=== PATIENT | female | born 1995 | race Caucasian/White ===

== ENCOUNTER 2018-10-03 09:57 | Inpatient (IN) | payer MEDICAID ==
[~2018-10-03] VITALS: Ht 160 cm; Wt 88.2 kg
[2018-10-03] MEDS ORDERED: OXYTOCIN 30U/ 0.9% NaCL 500ML 500 ML IV ONE (10:34)
[2018-10-03] MEDS ORDERED: OXYTOCIN 30U/ 0.9% NaCL 500ML 500 ML IV PRN (10:34)
[2018-10-03] MEDS ORDERED: NEWBORN KIT ONE ×2 (10:38→11:49)
[2018-10-03] MEDS ORDERED: OXYTOCIN 30U/ 0.9% NaCL 500ML 500 ML ONE (10:38)
[2018-10-03] MEDS ORDERED: PENICILLIN GK 5,000,000 UNITS in DEXTROSE 5% 100 ML IVPB ONE (11:00)
[2018-10-03] MEDS ORDERED: FENTANYL PF 100 MCG/2ML IVPush PRN (11:00)
[2018-10-03] MEDS ORDERED: PLEASE ENTER HEIGHT AND WEIGHT MC SCH (11:00)
[2018-10-03] MEDS ORDERED: ONDANSETRON 2MG/ML, 2ML IVPush PRN (11:00)
[2018-10-03] MEDS ORDERED: CALCIUM CARBONATE 500 MG TAB.CHEW PO PRN (11:00)
[2018-10-03 11:08] LABS: BASOPHILS # (AUTO) 0.04 x10^3/uL (0-0.1); BASOPHILS % (AUTO) 1 % (0-1); EOSINOPHILS # (AUTO) 0.06 x10^3/uL (0-0.4); EOSINOPHILS % (AUTO) 1 % (1-7); LYMPHOCYTES # (AUTO) 1.31 x10^3/uL (1-3.4); LYMPHOCYTES % (AUTO) 16 % (22-44); MD NO; MEAN CORPUSCULAR HEMOGLOBIN 26.3 pg (27.0-34.8); MEAN CORPUSCULAR VOLUME 79.7 fL (80-100); MEAN PLATELET VOLUME 8.6 fL (7.4-10.4); MONOCYTES # (AUTO) 0.56 x10^3/uL (0.2-0.8); MONOCYTES % (AUTO) 7 % (2-9); NEUTROPHILS # (AUTO) 6.39 x10^3/uL (1.8-6.8); NEUTROPHILS % (AUTO) 77 % (42-75); PLATELET COUNT 348 x10^3/uL (130-400); RED BLOOD COUNT 4.62 x10^6/uL (3.82-5.3); RED CELL DISTRIBUTION WIDTH 14.8 % (9.6-15.2)
[2018-10-03] MEDS: LACTATED RINGERS 1,000 ML IV SCH ×3 (11:27→19:33)
[2018-10-03 11:43] VITALS: BP 112/74
[2018-10-03] MEDS ORDERED: FENTANYL/BUPIV./NS/PF 250 ML EPIDCONT SCH (15:10)
[2018-10-03] MEDS: PENICILLIN GK 2,500,000 UNITS in DEXTROSE 5% 100 ML IVPB SCH ×3 (15:17→23:36)
[2018-10-03] MEDS ORDERED: FENTANYL PF 500 MCG, BUPIVACAINE/PF 0.5%, 30ML 62.5 ML in SODIUM CHLORIDE 0.9% 177.5 ML EPIDCONT SCH (15:30)
[2018-10-03] MEDS ORDERED: BUPIVACAINE 0.25% ONE (18:28)
[2018-10-04] MEDS ORDERED: ONDANSETRON 2MG/ML, 2ML IV PRN (01:00)
[2018-10-04] MEDS ORDERED: DOCUSATE 100 MG CAPSULE PO PRN (01:00)
[2018-10-04] MEDS ORDERED: MISOPROSTOL 200 MCG TABLET PR PRN (01:00)
[2018-10-04] MEDS ORDERED: OXYcodone/APAP 5/325MG TABLET PO PRN (01:00)
[2018-10-04] MEDS ORDERED: ACETAMINOPHEN 325 MG TABLET PO PRN (01:00)
[2018-10-04] MEDS ORDERED: OXYTOCIN 30U/ 0.9% NaCL 500ML 500 ML ONE (01:16)
[2018-10-04] MEDS: OXYTOCIN 30U/ 0.9% NaCL 500ML 500 ML IV SCH ×3 (01:22→20:56)
[2018-10-04] MEDS ORDERED: IBUPROFEN 600 MG TABLET ONE (02:01)
[2018-10-04] MEDS: IBUPROFEN 600 MG TABLET PO PRN ×4 (02:03→22:15)
[2018-10-04 04:00] VITALS: BP 97/61
[2018-10-04 08:48] LABS: BASOPHILS # (AUTO) 0.03 x10^3/uL (0-0.1); BASOPHILS % (AUTO) 0 % (0-1); EOSINOPHILS # (AUTO) 0.12 x10^3/uL (0-0.4); EOSINOPHILS % (AUTO) 1 % (1-7); LYMPHOCYTES # (AUTO) 1.69 x10^3/uL (1-3.4); LYMPHOCYTES % (AUTO) 14 % (22-44); MD NO; MEAN CORPUSCULAR HEMOGLOBIN 26.3 pg (27.0-34.8); MEAN CORPUSCULAR HGB CONC 32.9 g/dL (32.4-35.8); MEAN CORPUSCULAR VOLUME 80.1 fL (80-100); MEAN PLATELET VOLUME 8.5 fL (7.4-10.4); MONOCYTES # (AUTO) 0.88 x10^3/uL (0.2-0.8); MONOCYTES % (AUTO) 8 % (2-9); NEUTROPHILS # (AUTO) 9.04 x10^3/uL (1.8-6.8); NEUTROPHILS % (AUTO) 77 % (42-75); PLATELET COUNT 309 x10^3/uL (130-400); RED BLOOD COUNT 4.06 x10^6/uL (3.82-5.3); RED CELL DISTRIBUTION WIDTH 14.8 % (9.6-15.2)
[2018-10-04 08:50] VITALS: BP 103/68
[2018-10-04] MEDS: PRENATAL VIT/IRON/FA 1 EACH TABLET PO SCH (08:59)
[2018-10-04 12:20] VITALS: BP 96/66
[2018-10-04 16:21] VITALS: BP 101/65
[2018-10-04 20:15] VITALS: BP 99/67
[2018-10-05] VITALS: BP 102/70
[2018-10-05] MEDS: IBUPROFEN 600 MG TABLET PO PRN ×2 (05:36→13:22)
[2018-10-05] MEDS: OXYTOCIN 30U/ 0.9% NaCL 500ML 500 ML IV SCH (06:56)
[2018-10-05] MEDS: PRENATAL VIT/IRON/FA 1 EACH TABLET PO SCH (09:09)
[2018-10-05 10:46] VITALS: BP 97/68
[2018-10-05] MEDS ORDERED: IBUP-1222 PO (12:22)
== END 2018-10-05 16:30 | disposition home or self-care (01) | DRG 807 ==
LOC: LDIP 09:57 → 2NW 10-04 03:50
PROVIDERS: ADMIT Obstetrics & Gynecology; ATTEND Obstetrics & Gynecology
PROC: 3E0R3BZ Introduction of Anesthetic Agent into Spinal Canal, Percutaneous Approach (ICD-10-PCS; principal; 2018-10-04)
PROC: 10E0XZZ Delivery of Products of Conception, External Approach (ICD-10-PCS; 2018-10-04)
PROC: 00HU33Z Insertion of Infusion Device into Spinal Canal, Percutaneous Approach (ICD-10-PCS; 2018-10-04)
DX: O80 Encounter for full-term uncomplicated delivery (principal); Z37.0 Single live birth; Z3A.38 38 weeks gestation of pregnancy
CPT/HCPCS: 36415; 85025; 86850; 86900; G0378; J2540; J2590; J7120